=== PATIENT | male | born 1975 | race Caucasian/White ===

== ENCOUNTER 2020-01-22 15:03 | Emergency (ER) | payer OTHER ==
[~2020-01-22] VITALS: Ht 182.9 cm; Wt 68.0 kg
[~2020-01-22 15:03] MED LIST: DOXYCYCLINE 10100 MG PO; NOHOMEMEDICATIONS
[2020-01-22] MEDS ORDERED: IBUPROFEN 800800 M1 PO (16:04)
[2020-01-22 16:13] VITALS: BP 128/72
== END 2020-01-22 16:14 | disposition home or self-care (01) ==
LOC: M.ERS 15:03
DX: S62.142A Displaced fracture of body of hamate [unciform] bone, left wrist, initial encounter for closed fracture (principal); W22.8XXA Striking against or struck by other objects, initial encounter; Y93.89 Activity, other specified; Y92.89 Other specified places as the place of occurrence of the external cause; Y99.8 Other external cause status